=== PATIENT | female | born 2000 | race Asian ===

== ENCOUNTER → 2020-06-08 | Outpatient (CLI) | payer BC, OTHER ==
[~2020-06-08] MED LIST: IBUPROFEN 600600 M1 PO
--- NOTE | 2020-06-08 14:46 | EKG ---
[facility] [place] [address] ELECTROCARDIOGRAM REPORT Name: SWATHI KOVACS Room #: REG [facility]#: [id number] Admission: 06/08/20 Attend Phys: Physician not on staff Discharge: Date of : 1 Report #: [id number] THIS REPORT FOR: cc: MAILE TRIPATHI MD Physician not on staff Raghav Dee MD [facility] THIS REPORT FOR: //name// [facility] Test Date: 2020-06-08 Test Time: 11:49:44 Pat Name: SWATHI KOVACS Department: Room: Gender: F [employer]: [facility] : 2000 Requested By: Physician staff Order Number: [id number] MD: Raghav Dee Measurements Intervals [place] Rate: 65 P: 76 IA: 156 QRS: 100 QRSD: 91 T: 64 QT: 382 QTc: 398 Interpretive Statements Sinus rhythm Borderline right axis deviation No previous ECG available for comparison Electronically Signed On 06-08-2020 14:46:22 CDT by Raghav Dee [email or web address] <ELECTRONICALLY SIGNED> By: Raghav Dee MD, [facility] 06/08/20 1446 1149 [id number] Raghav Dee MD, FAC /EPI
== END ==
LOC: CV 11:37
DX: I49.9 Cardiac arrhythmia, unspecified (principal); R94.31 Abnormal electrocardiogram [ECG] [EKG]; F50.9 Eating disorder, unspecified